=== PATIENT | male | born 1965 | race Caucasian/White ===

== ENCOUNTER 2022-07-31 19:16 | Emergency (ER) | payer OTHER, SELFPAY ==
[2022-07-31 19:17] VITALS: BP 170/106; PULSE 118; RESP 20; TEMP 37; O2SAT 96
--- NOTE | 2022-07-31 19:27 | ED.SKABFB ---
HPI - Skin/Abscess/Foreign Bdy General Chief complaint: Skin/Abscess/Foreign Body Stated complaint: abscess rt upper arm Time Seen by Provider: 07/31/22 19:27 History of Present Illness HPI narrative: 57-year-old male patient is here with complaints of his painful swelling on the right shoulder area for the last 2 weeks. He states that he has problems with infected cysts and he has been trying to nurse that at home by using clindamycin locally however this has gotten bigger and more painful. He localizes the pain to the entire shoulder blade area and states that it radiates into the neck as well. He has had a similar cyst incised and drained in the past. He denies being diabetic. The patient has history of hypertension. He also has history of pulmonary embolism and he has been on Eliquis up until 2 months ago. He reports no fever or chills. Related Data Allergies Allergy/AdvReac Type Severity Reaction Status Date / Time Penicillins Allergy Unknown Rash Unverified 05/24/22 07:55 paroxetine [From Paxil] AdvReac Unknown Insomnia Unverified 05/24/22 07:55 sertraline [From Zoloft] AdvReac Unknown fatigue Unverified 05/24/22 07:55 sulfasalazine AdvReac Unknown Unknown Unverified 05/24/22 07:55 Review of Systems Review of Systems: All systems reviewed & are unremarkable except as noted in HPI and below PMFSH Past Medical History Medical History Anxiety Colitis HTN (hypertension) Pulmonary embolism without acute cor pulmonale Recurrent pancreatitis Ulcerative colitis Family History Family History Father Heart disease Social History Social History Smoking status: Never smoker Alcohol intake: never Substance use: never Living arrangements: with family Occupation/Education: occupation Gender identity (if verbalized by the patient): Male Exam Narrative: Alert male patient who appears somewhat anxious and in mild discomfort. Vital signs are stable except blood pressure is elevated at 1 70/106 and the patient has not taken his blood pressure medications today. He is afebrile. HEENT is normal. Lungs are clear. Heart tones are regular. There is a larger erythematous area measuring approximately 10 cm in diameter over the right upper arm on the lateral surface. Most of this area is indurated however there is a central fluctuant mass without any drainage. The whole area is tender on palpation. There is no streaking of erythema noted either cephalad or caudad. No other similar lesions are noted on the skin elsewhere. Skin otherwise is warm and dry and skin turgor is normal. Neurologic exam is grossly normal. Patient is extremely anxious. Course Course Emergency Course: The patient has taken his evening medications. His vitals do remain stable. he has tolerated incision and drainage well. He has been given 1st dose of clindamycin 300 mg here in the ER as well as pain control with hydrocodone 10 andtylenol 650 Mg. He is aware of the discharge plans and instructions to follow-up with his primary care provider in 3 days to have the packing removed longterm through and then completely removed 3 days thereafter. Procedures Abscess I/D upper extremity: Date of Incision: 07/31/22 Time of Incision: 20:01 Local Anesthetic: lidocaine 1% Amount of anesthesia used (mL): 3 Technique: needle aspiration and incised with #11 blade Amount of fluid expressed (mL): 5 ( Approximately 5 mL of purulent drainage and large chunks of thick sebaceous material were expelled from the site after incision) Irrigation: No Packing used?: iodoform I&D Results: Pus and Other (thick sebaceous material in large chunks ) Discharge Plan Discharge Prescriptions: No Action amlodipine-benazepril [Lotrel] 5-20 mg caps
[2022-07-31] MEDS: HYDROcodone/acetaminophen (*CRX) 5-325 MG TABLET 2 TAB PO (20:12)
[2022-07-31] MEDS: CLINDAMYCIN HCL 150 MG CAP 300 MG PO (20:13)
[2022-07-31] MEDS: LIDOCAINE HCL 1% LOCAL INJ 10 ML VIAL 5 ML INFILTRATE (20:15)
[2022-07-31 20:20] VITALS: BP 168/101; PULSE 94; RESP 20; O2SAT 94
--- NOTE | 2022-08-04 18:57 | PC.NURSE ---
final right arm culture reviewed by dr cuevas. new precription ordered for pt. pt contacted and informed of need to [facility] this evening. pt verbalzes understanding. augmentin 875/125mg Q12 hours x10 days called in to [facility].
== END 2022-07-31 21:05 | disposition home or self-care (01) ==
PROVIDERS: Emergency Provider Emergency Medicine; PCP Physician Assistant Medical
DX: L02.413 Cutaneous abscess of right upper limb (principal); I10 Essential (primary) hypertension; Z79.01 Long term (current) use of anticoagulants; Z86.711 Personal history of pulmonary embolism
CPT/HCPCS: 10061; 87070; 87147; 87186; 87205; 99283; A9270